=== PATIENT | female | born 1995 | race Caucasian/White ===

== ENCOUNTER → 2018-04-24 15:22 | Outpatient (REF) | payer MEDICAID, SELFPAY ==
[2018-04-24 19:15] LABS: Amphetamine/Metha Screen,Urine Negative ng/mL (<1000); Barbiturates Screen,Urine Negative ng/mL (<200); Benzodiazepines Screen,Urine Negative ng/mL (<200); Cannabinoid Screen,Urine Negative ng/mL (<50); Cocaine Screen,Urine Negative ng/mL (<300); Methadone Screen,Urine Negative ng/mL (<300); Opiate Screen,Urine Negative ng/mL (<300); Phencyclidine Screen,Urine Negative ng/mL (<25)
== END ==
LOC: LAB 15:22
PROVIDERS: Visit Provider Emergency Medicine
DX: E66.9 Obesity, unspecified (principal); Z79.899 Other long term (current) drug therapy
CPT/HCPCS: 80305

== ENCOUNTER → 2018-08-15 19:08 | Outpatient (CLI) | payer MEDICAID, SELFPAY ==
[2018-08-15 20:32] LABS: Amphetamine/Metha Screen,Urine Negative ng/mL (<1000); Barbiturates Screen,Urine Negative ng/mL (<200); Benzodiazepines Screen,Urine Negative ng/mL (<200); Cannabinoid Screen,Urine Negative ng/mL (<50); Cocaine Screen,Urine Negative ng/mL (<300); Methadone Screen,Urine Negative ng/mL (<300); Opiate Screen,Urine Negative ng/mL (<300); Phencyclidine Screen,Urine Negative ng/mL (<25)
[2018-08-15 21:18] LABS: Alanine Aminotransferase 35 U/L (12-78); Albumin Level 3.5 gm/dL (3.4-5.0); Albumin/Globulin Ratio 0.8 (1.1-1.8); Alkaline Phosphatase 91 U/L (46-116); Aspartate Amino Transferase 13 U/L (15-37); Bilirubin,Total 0.3 mg/dL (0.2-1.0); Blood Urea Nitrogen 8 mg/dL (7-18); Calcium 8.8 mg/dL (8.5-10.1); Carbon Dioxide 25 mmol/L (21.0-32.0); Chloride 104 mmol/L (98-107); Creatinine,Serum 0.61 mg/dL (0.55-1.02); Estimated Glomerular Filt Rate 125 ml/min (>60); Free Thyroxine Index 2.5 ug/dL (5.93-13.13); GFR (African American) 151 ML/MIN (>60); Globulin 4.3 gm/dl (1.3-3.2); Glucose 88 mg/dL (74-106); Sodium 140 mmol/L (136-145); T4 (Thyroxine) 8.2 ug/dl (5.4-10.6); Thyroid Stimulating Hormone 1.77 uIU/ml (0.516-4.13); Total Protein,Serum 7.8 gm/dL (6.4-8.2); Triiodothryronine (T3) Uptake 30 % (31-39)
[2018-08-15 22:51] LABS: Basophils % 0.6 % (0.1-2.0); Eosinophils # 0.1 K/mm3 (0.0-0.4); Eosinophils % 2.3 % (0.1-12.0); Hematocrit 42.6 % (37.0-47.0); Hemoglobin 13.6 g/dL (12.2-16.2); Lymphocytes # 2.1 K/mm3 (0.7-4.5); Lymphocytes % 34.9 % (10-50); Mean Corpuscular Hemoglobin 30.7 pg (27.0-31.2); Mean Corpuscular Volume 95.9 fl (81-99); Mean Platelet Volume 8.8 fl (7.4-10.4); Monocytes # 0.3 K/mm3 (0.1-1.0); Monocytes % 4.5 % (1.7-9.3); Neutrophils # 3.5 K/mm3 (1.8-7.8); Neutrophils % 57.7 % (37.0-80.0); Platelet Count 237 K/mm3 (142-424); Red Blood Count 4.44 M/mm3 (4.20-5.40); White Blood Count 6.1 K/mm3 (4.5-13.0)
== END ==
PROVIDERS: Visit Provider Nurse Practitioner Family
DX: Z79.899 Other long term (current) drug therapy (principal); E66.9 Obesity, unspecified
CPT/HCPCS: 80053; 80305; 84436; 84443; 84479; 85025

== ENCOUNTER 2020-10-01 17:48 | Emergency (ER) | payer MEDICAID, SELFPAY ==
[2020-10-01 17:49] VITALS: BP 130/76; PULSE 89; RESP 14; TEMP 36.6; O2SAT 96; BMI 61.9
--- NOTE | 2020-10-01 18:10 | HMH.EDUTC ---
[facility] [place] Impression: Sinusitis Qualifiers: Sinusitis location: unspecified location Chronicity: acute Recurrence: non-recurrent Qualified Code(s): J01.90 - Acute sinusitis, unspecified Disposition: Home, Self-Care Condition on Discharge: Good Instructions: Sinusitis, DI for Sinusitis Additional Instructions: Drink plenty of fluids. Take tylenol or ibuprofen for pain or fever. Take the medications as directed. Follow up with your regular doctor. GO TO THE ER FOR ANY WORSENING SYMPTOMS Prescriptions: methylPREDNISolone [Medrol] 4 mg PO DIRECTED 6 Days #21 tab.ds.pk Transmission Status: Received by [facility] Cefdinir [Omnicef 300mg Capsule] 300 mg PO BID #20 cap Transmission Status: Received by [facility] Benzonatate [Tessalon Perle 100mg Cap] 100 mg PO TIDP PRN #30 cap PRN Reason: Cough Transmission Status: Received by [facility] Referrals: Fadi Lua MD [Primary Care Provider] - Time of Disposition: 18:19 Medical Decision Making - Medical Records Medical records reviewed: No: I reviewed the patient's medical records. - Victor Hugo Inquiry Pt receiving controlled substance: No Vital Signs: 10/01/20 17:49 10/01/20 18:28 Temperature 97.9 F 97.9 F Temperature Source Oral Oral Pulse Rate 89 Pulse Rate [Right] 89 Respiratory Rate 14 14 Blood Pressure 130/76 Blood Pressure [Right Arm] 130/76 Blood Pressure Mean [Right Arm] 94 02 Sat by Pulse Oximetry 96 [facility] [place] - General Stated complaint: poss uppper resp infection Time Seen by Provider: 10/01/20 18:10 Description of Symptoms (Recalled from Triage Doc. by RN): pt c/o head congestion, runny nose, sinus pain HEENT Symptoms (Recalled from RN notes): Yes Resp Symptoms (Recalled from RN notes): Yes Skin Symptoms (Recalled from RN notes): No MS Symptoms (Recalled from RN notes): No Functional Status (Recalled from RN notes): wnl - History of Present Illness Provider Complaint: She states that for the past 7 days she has had sinus congestion, sinus drainage and pressure. She usually gets a sinus infection around this time every year. She denies any covid exposure. She is not working at this time and none of her family has been sick. - Related Data Previous Rx's Medication Instructions Recorded albuterol sulfate 90 mcg/actuation See Rx Instructions .ROUTE 04/28/20 aerosol inhaler .COMPLEX #18 unspecified atorvastatin 10 mg tablet See Rx Instructions .ROUTE 06/07/20 .COMPLEX #90 unspecified loratadine 10 mg tablet See Rx Instructions .ROUTE 07/07/20 .COMPLEX #90 tab buspirone 5 mg tablet 5 mg PO BID #60 tab 09/15/20 fluoxetine 40 mg capsule 40 mg PO DAILY #30 cap 09/15/20 norgestimate-ethinyl estradiol 1 tab PO DAILY #28 tab 09/28/20 0.18 mg/0.215mg/0.25mg-35 mcg(28)tablet Benzonatate [Tessalon Perle 100mg 100 mg PO TIDP PRN #30 cap 10/01/20 Cap] Cefdinir [Omnicef 300mg Capsule] 300 mg PO BID #20 cap 10/01/20 methylPREDNISolone [Medrol] 4 mg PO DIRECTED 6 Days #21 10/01/20 tab.ds.pk Allergies Allergy/AdvReac Type Severity Reaction Status Date / Time diphenhydramine Allergy Intermediate Verified 10/01/20 18:09 [From BENADRYL ALLERGY] Penicillins [PENICILLINS] Allergy Mild Verified 10/01/20 18:09 - Worker's Comp Is this a Worker's Comp case?: No Is this an H Worker's Comp?: No Is this a [place] Worker's Comp?: No H History - Hepatitis A Screen Drug use history?: No High risk sexual behaviors?: No History of sexually transmitted infection?: No Currently employed?: No Childcare worker?: No Do you have indoor plumbing?: Yes Do you have electricity?: Yes Attestation statement:: This patient has been screened for Hepatitis A risk factors. I have reviewed the patient's past medical history: Yes Medical History: Reports:: Asthma, Depression, Hyperlipidemia Other Medical History: Reports: Sinus Problems, Other Comment: PCOS. OBESITY
[2020-10-01 18:28] VITALS: BP 130/76; PULSE 89; RESP 14; TEMP 36.6; O2SAT 96
== END 2020-10-01 18:30 | disposition home or self-care (01) ==
PROVIDERS: Emergency Provider Nurse Practitioner Family; PCP Emergency Medicine
DX: J01.90 Acute sinusitis, unspecified (principal); J45.909 Unspecified asthma, uncomplicated; E78.5 Hyperlipidemia, unspecified; F33.1 Major depressive disorder, recurrent, moderate; Z79.899 Other long term (current) drug therapy
CPT/HCPCS: 99202; G0463

== ENCOUNTER 2020-10-15 15:25 | Emergency (ER) | payer MEDICAID, SELFPAY ==
[2020-10-15 15:35] VITALS: BP 122/58; PULSE 90; RESP 21; TEMP 36.4; O2SAT 96; BMI 61.9
--- NOTE | 2020-10-15 16:01 | HMH.EDUTC ---
[facility] [place] Clinical Impression: Sinusitis Qualifiers: Sinusitis location: unspecified location Chronicity: acute Recurrence: non-recurrent Qualified Code(s): J01.90 - Acute sinusitis, unspecified Disposition: Home, Self-Care Condition on Discharge: Good Instructions: Sinusitis, DI for Sinusitis Additional Instructions: Drink plenty of fluids. Take tylenol for pain or fever. Take the medications as directed. Follow up with your regular doctor. GO TO THE ER FOR ANY WORSENING SYMPTOMS Prescriptions: Doxycycline Hyclate [Doxycycline 100mg Capsule] 100 mg PO Q12 10 Days #20 cap Transmission Status: Received by [facility] Referrals: Fadi Lua MD [Primary Care Provider] - Time of Disposition: 16:14 Medical Decision Making - Medical Records Medical records reviewed: No: I reviewed the patient's medical records. - Victor Hugo Inquiry Pt receiving controlled substance: No Vital Signs: 10/15/20 15:35 10/15/20 16:11 Temperature 97.6 F 97.6 F Temperature Source Oral Pulse Rate 90 Pulse Rate [Right Brachial] 90 Respiratory Rate 21 21 Blood Pressure 122/58 L Blood Pressure [Right Arm] 122/58 L Blood Pressure Mean [Right Arm] 79 Blood Pressure Source [Right Arm] Automatic Cuff Blood Pressure Position [Right Arm] Sitting 02 Sat by Pulse Oximetry 96 Oxygen Delivery Method Room Air [facility] [place] - General Stated complaint: Congestion, sinus tenderness Time Seen by Provider: 10/15/20 16:01 Mode of Arrival: Ambulatory Source of Information: Patient Limitations: No Limitations Description of Symptoms (Recalled from Triage Doc. by RN): PATIENT C/O SINUS CONGESTION AND TENDERNESS X 2 WEEKS HEENT Symptoms (Recalled from RN notes): Yes Resp Symptoms (Recalled from RN notes): No Skin Symptoms (Recalled from RN notes): No MS Symptoms (Recalled from RN notes): No Functional Status (Recalled from RN notes): WNL - History of Present Illness Provider Complaint: She reports that she has been having sinus congestion for the past 2 weeks. - Related Data Previous Rx's Medication Instructions Recorded albuterol sulfate 90 mcg/actuation See Rx Instructions .ROUTE 04/28/20 aerosol inhaler .COMPLEX #18 unspecified atorvastatin 10 mg tablet See Rx Instructions .ROUTE 06/07/20 .COMPLEX #90 unspecified buspirone 5 mg tablet 5 mg PO BID #60 tab 09/15/20 fluoxetine 40 mg capsule 40 mg PO DAILY #30 cap 09/15/20 norgestimate-ethinyl estradiol 1 tab PO DAILY #28 tab 09/28/20 0.18 mg/0.215mg/0.25mg-35 mcg(28)tablet Benzonatate [Tessalon Perle 100mg 100 mg PO TIDP PRN #30 cap 10/01/20 Cap] Cefdinir [Omnicef 300mg Capsule] 300 mg PO BID #20 cap 10/01/20 methylPREDNISolone [Medrol] 4 mg PO DIRECTED 6 Days #21 10/01/20 tab.ds.pk loratadine 10 mg tablet See Rx Instructions .ROUTE 10/07/20 .COMPLEX #90 tab Doxycycline Hyclate [Doxycycline 100 mg PO Q12 10 Days #20 cap 10/15/20 100mg Capsule] Allergies Allergy/AdvReac Type Severity Reaction Status Date / Time diphenhydramine Allergy Intermediate Verified 10/01/20 18:09 [From BENADRYL ALLERGY] Penicillins [PENICILLINS] Allergy Mild Verified 10/01/20 18:09 - Worker's Comp Is this a Worker's Comp case?: No H History - Hepatitis A Screen Drug use history?: No High risk sexual behaviors?: No History of sexually transmitted infection?: No Currently employed?: No Childcare worker?: No Do you have indoor plumbing?: Yes Do you have electricity?: Yes Attestation statement:: This patient has been screened for Hepatitis A risk factors. Medical History: Reports:: Asthma, Depression, Hyperlipidemia Other Medical History: Reports: Sinus Problems, Other Comment: PCOS. OBESITY Laterality Cases: Bilateral: Other Other Surgeries: Yes: No Previous Surgery, Other Amputation: No Fractures: No Comment: WISDOM TEETH--2017 - Social History Smoking Status: Never smoker Alcohol Intake: never Substance Use Type:
[2020-10-15 16:11] VITALS: BP 122/58; PULSE 90; RESP 21; TEMP 36.4; O2SAT 96
== END 2020-10-15 16:18 | disposition home or self-care (01) ==
PROVIDERS: Emergency Provider Nurse Practitioner Family; PCP Emergency Medicine
DX: J01.90 Acute sinusitis, unspecified (principal)
CPT/HCPCS: 99202; G0463

== ENCOUNTER → 2020-12-03 18:06 | Outpatient (CLI) | payer MEDICAID, SELFPAY ==
[2020-12-03 18:35] LABS: Basophils % 0.5 % (0.1-2.0); Eosinophils # 0.3 K/mm3 (0.0-0.4); Eosinophils % 3.6 % (0.1-12.0); Hematocrit 42.1 % (37.0-47.0); Hemoglobin 14.1 g/dL (12.2-16.2); Lymphocytes # 2.1 K/mm3 (0.7-4.5); Mean Corpuscular HGB Conc 33.6 g/dL (31.8-35.4); Mean Corpuscular Hemoglobin 30.5 pg (27.0-31.2); Mean Corpuscular Volume 90.9 fl (81-99); Mean Platelet Volume 9.6 fl (7.4-10.4); Monocytes # 0.2 K/mm3 (0.1-1.0); Monocytes % 3.3 % (1.7-9.3); Neutrophils # 4.8 K/mm3 (1.8-7.8); Neutrophils % 64.6 % (37.0-80.0); Platelet Count 290 K/mm3 (142-424); Red Blood Count 4.64 M/mm3 (4.20-5.40); Red Cell Distribution Width 13.6 % (11.5-17.5); White Blood Count 7.4 K/mm3 (4.8-10.8)
[2020-12-03 18:39] LABS: Alanine Aminotransferase 22 U/L (12-78); Albumin Level 4.1 g/dl (3.5-5.0); Albumin/Globulin Ratio 1.2 (1.1-1.8); Alkaline Phosphatase 94 U/L (38-126); Anion Gap 16.2 mEq/L (5-15); Aspartate Amino Transferase 25 U/L (14-36); Bilirubin,Total 0.6 mg/dl (0.2-1.3); Blood Urea Nitrogen 12 mg/dl (7-17); Calcium 9.2 mg/dl (8.4-10.2); Carbon Dioxide 18 mmol/L (22.0-30.0); Chloride 108 mmol/L (98-107); Chol/HDL Ratio 4.5 (1-3.5); Cholesterol 241 mg/dl (140-200); Estimated Glomerular Filt Rate 104 ml/min (>60); GFR (African American) 125 ML/MIN (>60); Globulin 3.3 g/dL (1.3-3.2); Glucose 121 mg/dl (74-100); HDL Cholesterol 53 mg/dl (40-60); Potassium 4.2 mmoL/L (3.5-5.1); Sodium 138 mmol/L (136-145); Total Protein,Serum 7.4 g/dl (6.3-8.2); Triglycerides 185 mg/dl (30-150); VLDL Cholesterol 37 mg/dL (0-40)
[2020-12-03 18:50] LABS: Direct LDL Cholesterol 141.68 mg/dL (100-129)
[2020-12-03 18:57] LABS: 25-OH Vitamin D, Total < 12.8 ng/mL (30-100); Free T4 (Free Thyroxine) 1.11 ng/dl (0.78-2.19)
[2020-12-03 19:09] LABS: Thyroid Stimulating Hormone 1.58 uIU/mL (0.465-4.68)
== END ==
PROVIDERS: Visit Provider Physician Assistant
DX: Z00.00 Encounter for general adult medical examination without abnormal findings (principal); E78.5 Hyperlipidemia, unspecified; E66.01 Morbid (severe) obesity due to excess calories; Z68.44 Body mass index [BMI] 60.0-69.9, adult
CPT/HCPCS: 80053; 80061; 82306; 84439; 84443; 85025

== ENCOUNTER → 2021-09-21 15:19 | Outpatient (CLI) | payer MEDICAID, SELFPAY | PROVIDERS: Visit Provider Nurse Practitioner | DX: U07.1 COVID-19 (principal) | CPT/HCPCS: C9803; U0003; U0005 ==

== ENCOUNTER 2022-04-15 13:25 | Emergency (ER) | payer MEDICAID, SELFPAY ==
[2022-04-15 14:30] VITALS: BP 134/63; PULSE 91; RESP 18; TEMP 36.8; O2SAT 98; BMI 61.9
[2022-04-15 15:01] LABS: UTC Strep Screen (Rapid) Negative (Negative)
--- NOTE | 2022-04-15 15:01 | HMH.EDUTC ---
[facility] [place] Impression: Viral upper respiratory tract infection Disposition: Home, Self-Care Condition on Discharge: Good Instructions: DI for Viral Upper Respiratory Infection -- Adult, DI for COVID-19 (Suspected or Confirmed ), Preventing the Spread of Coronavirus Discharge Instructions Additional Instructions: *Monitor Temp, Over the counter Motrin or Tylenol as directed/as needed Tylenol every 4 hours and Motrin every 6 hours (as long as your family doctor has told you that you can take it) for fever or pain. and straight to ER if unable to lower temp less than 101.0 after medication given *Warm salt water gargles may help to soothe the throat *Throat Lozenges *Warm fluids like tea with honey may help to soothe the throat *Sleep elevated *Humidifier/Vaporizer Your throat swab was sent for culture. Those results are typically sent to your primary care. Be sure to follow up in 2-3 days with your family doctor/primary care physician if no improvement so they can review those result and treat if necessary. If you don?t have a primary care doctor, I recommend you get one but in the mean time, you will have to return to a walk in clinic Follow up IMMEDIATELY for new or worsening symptoms or no Noticeable improvement over the next 48-72 hours. 911 for difficulty breathing or swallowing You were tested for today for COVID19 your test result should be back in the next 24-48 hours, you may check your results on the [facility] My Health Portal Make sure to take your Vitamins Vit. C Vit D and Zinc if you can take them Referrals: Fadi Lua MD [Primary Care Provider] - As needed Forms: Work/School Release Time of Disposition: 15:10 Medical Decision Making - Victor Hugo Inquiry Pt receiving controlled substance: No Victor Hugo was queried for this patient: No Vital Signs: 04/15/22 14:30 Temperature 98.3 F Temperature Source Oral Pulse Rate [Right Brachial] 91 H Respiratory Rate 18 Blood Pressure [Right Arm] 134/63 Blood Pressure Mean [Right Arm] 86 Blood Pressure Source [Right Arm] Automatic Cuff Blood Pressure Position [Right Arm] Sitting 02 Sat by Pulse Oximetry 98 Oxygen Delivery Method Room Air - Lab Data Lab results reviewed: Yes: I reviewed the patient's lab results. Lab Results 04/15/22 14:36: Strep Scn Rapid Clinic Negative Orders (Tests/Meds): ORDERS Category Date Time Status Covid-19 Nasal PCR ([facility]) Routine Lab 04/15/22 14:28 Received Strep Screen Confirmation Stat Micro 04/15/22 14:36 [place]ceived [facility] [place] - General Stated complaint: Cough, Sore throat Time Seen by Provider: 04/15/22 15:02 Mode of Arrival: Ambulatory Source of Information: Patient Limitations: No Limitations Description of Symptoms (Recalled from Triage Doc. by RN): PATIENT C/O COUGH, SORE THROAT, SOA, AND FATIGUE X 4 DAYS HEENT Symptoms (Recalled from RN notes): Yes Resp Symptoms (Recalled from RN notes): Yes Skin Symptoms (Recalled from RN notes): No MS Symptoms (Recalled from RN notes): No Functional Status (Recalled from RN notes): WNL - History of Present Illness Provider Complaint: Patient states thats that for the last 4 days States that she has been having sore throat, sinus congestion, fatigue and headache States that she was worried that she may have strep throat or COVID So she came in to get tested - Related Data Previous Rx's Medication Instructions Recorded nystatin 100,000 unit/gram topical 1 applic TOPICAL TID #30 g 11/19/20 cream cholecalciferol (vitamin D3) 25 25 mcg PO DAILY #30 cap 06/17/21 mcg (1,000 unit) capsule ergocalciferol (vitamin D2) 1,250 See Rx Instructions .ROUTE 07/16/21 mcg (50,000 unit) capsule .COMPLEX #14 cap prednisone 20 mg tablet 20 mg PO BID #10 tab 09/17/21 norgestimate-ethinyl estradiol 1 tab PO DAILY #28 tab 10/07/21 0.18 mg/0.215mg/0.25mg-35 mcg(28)tablet loratadine 10 mg tablet See Rx Instructions .ROUTE 11/19/21 .COMPLEX #90 tab albuterol santos
[2022-04-15 15:05] VITALS: BP 134/63; PULSE 91; RESP 18; TEMP 36.8; O2SAT 98
== END 2022-04-15 15:13 | disposition home or self-care (01) ==
PROVIDERS: Emergency Provider Nurse Practitioner; PCP Emergency Medicine
DX: U07.1 COVID-19 (principal)
CPT/HCPCS: 87880; 99212; C9803; G0463; U0003; U0005

== ENCOUNTER 2022-06-20 15:58 | Emergency (ER) | payer MEDICAID, SELFPAY ==
[2022-06-20 16:10] VITALS: BP 136/90; PULSE 119; RESP 20; TEMP 36.6; O2SAT 97; BMI 58.2
--- NOTE | 2022-06-20 16:22 | EXP.UTC ---
Discharge Plan Disposition Patient Disposition: Home, Self-Care Condition: Good Prescriptions Prescriptions: No Action prednisone 20 mg tablet 20 mg PO BID Qty: 10 0RF Rx Instructions: administer with food or milk nystatin 100,000 unit/gram cream 1 applic TOPICAL TID Qty: 30 2RF buspirone 10 mg tablet 10 mg PO BID Qty: 60 1RF fluoxetine [Prozac] 20 mg capsule 20 mg PO DAILY Qty: 30 1RF Rx Instructions: take daily with the 40mg capsules; total dose is 60mg daily fluoxetine [Prozac] 40 mg capsule 40 mg PO DAILY Qty: 30 1RF cholecalciferol (vitamin D3) 25 mcg (1,000 unit) capsule 25 mcg PO DAILY Qty: 30 2RF ergocalciferol (vitamin D2) [Vitamin D2] 1,250 mcg (50,000 unit) capsule See Rx Instructions .ROUTE .COMPLEX Qty: 14 3RF Dose Instruction: TAKE 1 CAPSULE BY MOUTH ONCE WEEKLY DIRECTED Rx Instructions: TAKE 1 CAPSULE BY MOUTH ONCE WEEKLY DIRECTED norgestimate-ethinyl estradiol 0.18/0.215/0.25 mg-35 mcg (28) tablet 1 tab PO DAILY Qty: 28 11RF Rx Instructions: Pt. needs an appt. before we fill again loratadine 10 mg tablet See Rx Instructions .ROUTE .COMPLEX Qty: 90 2RF Dose Instruction: TAKE ONE TABLET BY MOUTH EVERY DAY Rx Instructions: TAKE ONE TABLET BY MOUTH EVERY DAY atorvastatin 10 mg tablet See Rx Instructions .ROUTE .COMPLEX Qty: 90 2RF Dose Instruction: TAKE ONE TABLET BY MOUTH EVERY DAY Rx Instructions: TAKE ONE TABLET BY MOUTH EVERY DAY albuterol sulfate [ProAir HFA] 90 mcg/actuation HFA aerosol inhaler See Rx Instructions .ROUTE .COMPLEX Qty: 17 4RF Dose Instruction: INHALE 1 PUFF BY MOUTH 4 TIMES A DAY --SHAKE WELL-- NEEDS AN APPOINTMENT BEFORE ANYMORE REFILLS Rx Instructions: INHALE 1 PUFF BY MOUTH 4 TIMES A DAY --SHAKE WELL-- NEEDS AN APPOINTMENT BEFORE ANYMORE REFILLS Referrals Follow up/Referrals: Fadi Lua MD [Primary Care Provider] - See instructions Activity Restrictions/Add. Instructions Additional Instructions/Restrictions: Keep area clean and dry Allow dermabond to wear off Do not pick at it Return if needed Clinical Impressions Clinical Impression: Laceration Instructions Patient Instructions: DI for Laceration Repair-Skin Glue Discharge ED Provider: Hortencia Barnett [facility] [place] General Stated complaint: AO 06/19 @0930 LAC LEFT THUMB Mode of Arrival: Ambulatory Source of Information: Patient Limitations: No Limitations Time Seen by Provider: 06/20/22 16:22 Description of Symptoms (Recalled from Triage Doc. by RN): PATIENT C/O LACERATION TO LEFT THUMB THAT SHE CUT ON A METAL SIGN LAST NIGHT. SHE IS NOT UP TO DATE ON TDAP HEENT Symptoms (Recalled from RN notes): No Resp Symptoms (Recalled from RN notes): No Skin Symptoms (Recalled from RN notes): Yes MS Symptoms (Recalled from RN notes): No Functional Status (Recalled from RN notes): WNL History of Present Illness Provider Complaint: Patient states that she was messing with metal sign last night at home around 10pm when she cut her left thumb States that she was worried that it may need stitches or something and she was not up to date on her tetanus so she came in to get it checked and tdap Related Data Previous Rx's Medication Instructions Recorded nystatin 100,000 unit/gram topical 1 applic topical TID #30 grams 11/19/20 cream cholecalciferol (vitamin D3) 25 25 mcg PO DAILY #30 caps 06/17/21 mcg (1,000 unit) capsule ergocalciferol (vitamin D2) 1,250 See Rx Instructions .Route 07/16/21 mcg (50,000 unit) capsule (Vitamin .COMPLEX #14 caps D2) prednisone 20 mg tablet 20 mg PO BID #10 tabs 09/17/21 norgestimate-ethinyl estradiol 1 tab PO DAILY #28 tabs 10/07/21 0.18 mg/0.215mg/0.25mg-35 mcg(28)tablet loratadine 10 mg tablet See Rx Instructions .Route 11/19/21 .COMPLEX #90 tabs albuterol sulfate 90 mcg/actuation See Rx Instructions .Route 12/10/21 aerosol inhaler (ProAir HF
--- NOTE | 2022-06-20 16:22 | PC.NURSE ---
SPOKE WITH JHON HOOD FROM PHARMACY R/T SYSTEM FLAGGING TDAP FOR LATEX ALLERGY. JHON STATES OK TO GIVE. SERVICE DELIVERY MANAGEMENT CONSULTANT AWARE
[2022-06-20 16:29] VITALS: BP 136/90; PULSE 119; RESP 20; TEMP 36.6; O2SAT 97
== END 2022-06-20 16:33 | disposition home or self-care (01) ==
PROVIDERS: Emergency Provider Nurse Practitioner; PCP Emergency Medicine
DX: S61.012A Laceration without foreign body of left thumb without damage to nail, initial encounter (principal); E78.5 Hyperlipidemia, unspecified; J45.909 Unspecified asthma, uncomplicated; F32.9 Major depressive disorder, single episode, unspecified; F41.1 Generalized anxiety disorder; Z79.52 Long term (current) use of systemic steroids; Z79.899 Other long term (current) drug therapy; Z88.0 Allergy status to penicillin; Z88.8 Allergy status to other drugs, medicaments and biological substances; Z91.040 Latex allergy status; W26.9XXA Contact with unspecified sharp object(s), initial encounter
CPT/HCPCS: 12001; 90471; 90715; 99213; G0463

== ENCOUNTER 2022-11-09 18:17 | Emergency (ER) | payer MEDICAID, SELFPAY ==
[2022-11-09 18:26] VITALS: BP 128/91; PULSE 125; O2SAT 96
[2022-11-09 18:30] VITALS: BP 153/95; PULSE 116; O2SAT 96
[2022-11-09 18:37] VITALS: BP 128/91; PULSE 130; RESP 16; TEMP 36.8; O2SAT 97; BMI 58.4
--- NOTE | 2022-11-09 18:44 | PC.NURSE ---
pt moved to room 3 for further evaluation of eye
[2022-11-09 19:00] VITALS: BP 118/75; PULSE 114
--- NOTE | 2022-11-09 19:06 | HMH.EDGENADL ---
Discharge Plan Disposition Patient Disposition: Home, Self-Care Condition: Good Prescriptions Prescriptions: No Action prednisone 20 mg tablet 20 mg PO BID Qty: 10 0RF Rx Instructions: administer with food or milk nystatin 100,000 unit/gram cream 1 applic TOPICAL TID Qty: 30 2RF cholecalciferol (vitamin D3) 25 mcg (1,000 unit) capsule 25 mcg PO DAILY Qty: 30 2RF norgestimate-ethinyl estradiol 0.18/0.215/0.25 mg-35 mcg (28) tablet 1 tab PO DAILY Qty: 28 11RF Rx Instructions: Pt. needs an appt. before we fill again albuterol sulfate [ProAir HFA] 90 mcg/actuation HFA aerosol inhaler See Rx Instructions .ROUTE .COMPLEX Qty: 17 4RF Dose Instruction: INHALE 1 PUFF BY MOUTH 4 TIMES A DAY --SHAKE WELL-- NEEDS AN APPOINTMENT BEFORE ANYMORE REFILLS Rx Instructions: INHALE 1 PUFF BY MOUTH 4 TIMES A DAY --SHAKE WELL-- NEEDS AN APPOINTMENT BEFORE ANYMORE REFILLS ergocalciferol (vitamin D2) [Vitamin D2] 1,250 mcg (50,000 unit) capsule See Rx Instructions .ROUTE .COMPLEX Qty: 14 2RF Dose Instruction: TAKE 1 CAPSULE BY MOUTH ONCE WEEKLY DIRECTED Rx Instructions: TAKE 1 CAPSULE BY MOUTH ONCE WEEKLY DIRECTED loratadine 10 mg tablet See Rx Instructions .ROUTE .COMPLEX Qty: 90 1RF Dose Instruction: TAKE ONE TABLET BY MOUTH EVERY DAY Rx Instructions: TAKE ONE TABLET BY MOUTH EVERY DAY atorvastatin 10 mg tablet See Rx Instructions .ROUTE .COMPLEX Qty: 90 1RF Dose Instruction: TAKE ONE TABLET BY MOUTH EVERY DAY Rx Instructions: TAKE ONE TABLET BY MOUTH EVERY DAY fluoxetine [Prozac] 20 mg capsule 20 mg PO DAILY Qty: 30 1RF Rx Instructions: take daily with the 40mg capsules; total dose is 60mg daily fluoxetine [Prozac] 40 mg capsule 40 mg PO DAILY Qty: 30 1RF buspirone 10 mg tablet 10 mg PO BID Qty: 60 1RF Referrals Follow up/Referrals: Fadi Lua MD [Primary Care Provider] - See instructions Activity Restrictions/Add. Instructions Additional Instructions/Restrictions: Use gentamicin eyedrops: 1 drop in left eye every 4 hours while awake for 3 days. Warm compresses 15 minutes 4-5 times a day. Follow-up with your eye doctor tomorrow if symptoms worsen or if not improving in 2 to 3 days. Additional instructions for EYE PAIN or INJURY: Follow up with an high school coach as soon as possible. Return to the emergency department if severe pain, loss of vision, pus drainage, severe swelling or redness of eyelids. Clinical Impressions Clinical Impression: Conjunctivitis Instructions Patient Instructions: DI for Conjunctivitis Discharge ED Provider: Hubert Coreas General Adult HPI General Chief complaint: Eye Problems Stated complaint: left eye red and pain, unknown origin Time Seen by Provider: 11/09/22 18:45 Mode of Arrival: Ambulatory Source of Information: Patient Limitations: No Limitations Description of Symptoms (Recalled from ER Triage Doc. by RN): pt comes in with c/o left eye redness, draiange that began this morning. pt states that she has drainage from her eye and it causes her vision to blur, but when she wipes the drainage away her vision is better. History of Present Illness HPI narrative: Patient states that she awakened this morning and had crusting and irritation of her left eye with some redness. She noticed a blister on the lateral aspect of her sclera which sounds like chemosis that improved throughout the day. No change in vision except from tearing. No foreign bodies or trauma noted. She does not wear contact lenses. She does wear glasses. No known exposure to any illnesses. Related Data Previous Rx's Medication Instructions Recorded nystatin 100,000 unit/gram topical 1 applic topical TID #30 grams 11/19/20 cream cholecalciferol (vitamin D3) 25 25 mcg PO DAILY #30 caps 06/17/21 mcg (1,000 unit) capsule prednisone 20 mg tablet 20 mg PO BID #10 tabs
[2022-11-09 19:18] VITALS: BP 128/72; PULSE 113; RESP 16; TEMP 36.7
== END 2022-11-09 19:19 | disposition home or self-care (01) ==
PROVIDERS: Emergency Provider Emergency Medicine; PCP Emergency Medicine
DX: H10.32 Unspecified acute conjunctivitis, left eye (principal); F41.8 Other specified anxiety disorders; J45.909 Unspecified asthma, uncomplicated; F41.1 Generalized anxiety disorder; E78.5 Hyperlipidemia, unspecified; F33.9 Major depressive disorder, recurrent, unspecified
CPT/HCPCS: 99283; 99284

== ENCOUNTER 2024-12-05 13:57 | Outpatient (CLI) | payer MEDICAID, SELFPAY ==
[2024-12-05 14:36] LABS: Basophils % 0.3 % (0.1-2.0); Eosinophils # 0.1 K/mm3 (0.0-0.4); Eosinophils % 1.2 % (0.1-12.0); Hematocrit 40.8 % (37.0-47.0); Hemoglobin 13.2 g/dL (12.2-16.2); Lymphocytes # 2.3 K/mm3 (0.7-4.5); Lymphocytes % 25.1 % (10-50); Mean Corpuscular HGB Conc 32.4 g/dL (31.8-35.4); Mean Corpuscular Hemoglobin 28.9 pg (27.0-31.2); Mean Corpuscular Volume 89.5 fl (81-99); Mean Platelet Volume 9.8 fl (7.4-10.4); Monocytes # 0.6 K/mm3 (0.1-1.0); Monocytes % 6.3 % (1.7-9.3); Neutrophils % 66.9 % (37.0-80.0); Platelet Count 283 K/mm3 (142-424); Red Blood Count 4.56 M/mm3 (4.20-5.40); Red Cell Distribution Width 13.2 % (11.5-17.5)
[2024-12-05 15:36] LABS: Thyroid Stimulating Hormone 2.19 uIU/mL (0.465-4.68)
== END 2024-12-05 23:59 | disposition home or self-care (01) ==
LOC: LAB 13:57
PROVIDERS: PCP Family Medicine; Visit Provider Obstetrics & Gynecology
DX: N93.9 Abnormal uterine and vaginal bleeding, unspecified (principal); E28.2 Polycystic ovarian syndrome
CPT/HCPCS: 36415; 84443; 85025

== ENCOUNTER 2024-12-10 14:02 | Outpatient (CLI) | payer MEDICAID, SELFPAY ==
--- NOTE | 2024-12-10 14:30 | US_ITS ---
PROCEDURE: US TRANSVAGINAL CLINICAL INDICATION: AUB COMPARISON: No exams were available for comparison FINDINGS: Transvaginal sonographic images of the pelvis were obtained. UTERUS: 8.1cm x 4.0cmx 3.5 cm anteverted with a combined endometrial thickness of 18mm. There is a small nabothian cyst in the cervix. LEFT OVARY: [id number] with a volume of 4.5ml. There are multiple small peripheral follicles. RIGHT OVARY: 4cmx [id number] with a volume of 8ml. There are multiple small peripheral follicles. Both ovaries are seen and appear polycystic. Doppler flow to both ovaries are seen. There is no fluid in the cul-de-sac. IMPRESSION: 1. Anteverted uterus normal in shape and size. The endometrium is markedly thickened measuring up to 18 mm. Would suggest endometrial sampling. 2. Both ovaries are normal in size and appear polycystic. 3. No fluid in the cul-de-sac. Dictated by: Harmeet Mcdaniels MD 12/10/2024 14:41 Harmeet Mcdaniels MD in OV 12/10/2024 14:41
== END 2024-12-10 23:59 | disposition home or self-care (01) ==
LOC: RAD 14:03
PROVIDERS: PCP Family Medicine; Visit Provider Obstetrics & Gynecology
DX: N93.9 Abnormal uterine and vaginal bleeding, unspecified (principal)
CPT/HCPCS: 76830

== ENCOUNTER 2025-01-09 16:24 | Outpatient (CLI) | payer MEDICAID, SELFPAY ==
[2025-01-09 19:13] LABS: Alanine Aminotransferase 26 U/L (12-78); Albumin Level 4.2 g/dl (3.5-5.0); Albumin/Globulin Ratio 1.4 (1.1-1.8); Alkaline Phosphatase 84 U/L (38-126); Anion Gap 13.1 mEq/L (5-15); Aspartate Amino Transferase 25 U/L (14-36); Bilirubin,Total 0.4 mg/dl (0.2-1.3); Blood Urea Nitrogen 12 mg/dl (7-17); Calcium 9.4 mg/dl (8.4-10.2); Carbon Dioxide 22 mmol/L (22.0-30.0); Chloride 108 mmol/L (98-107); Cholesterol 207 mg/dl (140-200); Estimated Glomerular Filt Rate 100 ml/min (>60); GFR (African American) 121 ML/MIN (>60); Glucose 84 mg/dl (74-100); HDL Cholesterol 69 mg/dl (40-60); Potassium 4.1 mmoL/L (3.5-5.1); Sodium 139 mmol/L (136-145); Total Protein,Serum 7.2 g/dl (6.3-8.2); Triglycerides 178 mg/dl (30-150); VLDL Cholesterol 36 mg/dL (0-40)
[2025-01-09 19:16] LABS: Hemoglobin A1C 5.5 % (4.0-6.0)
[2025-01-09 19:20] LABS: 25-OH Vitamin D, Total 22.7 ng/mL (30-100)
== END 2025-01-09 23:59 | disposition home or self-care (01) ==
LOC: LAB.DROPOF 01-10 12:52
PROVIDERS: PCP Family Medicine; Visit Provider Family Medicine
DX: E78.5 Hyperlipidemia, unspecified (principal); Z68.45 Body mass index [BMI] 70 or greater, adult; N93.9 Abnormal uterine and vaginal bleeding, unspecified; E55.9 Vitamin D deficiency, unspecified; E66.9 Obesity, unspecified
CPT/HCPCS: 80053; 80061; 82306; 83036

== ENCOUNTER 2025-01-10 10:06 | Outpatient (CLI) | payer MEDICAID, SELFPAY ==
[2025-01-10 11:51] LABS: HIV Combo NEGATIVE (Negative)
[2025-01-10 11:59] LABS: Hepatitis C Ab Qual. W/ RFX NEGATIVE (Negative)
== END 2025-01-10 23:59 | disposition home or self-care (01) ==
LOC: LAB 10:06
PROVIDERS: PCP Family Medicine; Visit Provider Obstetrics & Gynecology
DX: Z11.3 Encounter for screening for infections with a predominantly sexual mode of transmission (principal)
CPT/HCPCS: 36415; 86803; 87389